=== PATIENT | male | born 1960 | race Caucasian/White ===

== ENCOUNTER 2017-03-27 10:36 | Inpatient (IN) | payer OTHER ==
[2017-03-27 11:42] VITALS: BMI 23.1
[2017-03-27] MEDS ORDERED: ACETAMINOPHEN 325 MG TABLET (FP) PO PRN (13:20)
[2017-03-27] MEDS ORDERED: LOPERAMIDE HCL 2 MG CAPSULE PO PRN (13:20)
[2017-03-27] MEDS ORDERED: guaiFENesin/D-METHORPHAN HB 10 ML UNIT-DOSE CUPS PO PRN (13:20)
[2017-03-27] MEDS ORDERED: MENTHOL/PHENOL 1 EACH UD MM PRN (13:20)
[2017-03-27] MEDS ORDERED: NICOTINE POLACRILEX 4 MG GUM BUC PRN (13:20)
[2017-03-27] MEDS ORDERED: hydrOXYzine PAMOATE 50 MG CAPSULE (FP) PO PRN (13:20)
[2017-03-27] MEDS ORDERED: IBUPROFEN 400 MG TABLET (FP) PO PRN (13:20)
[2017-03-27] MEDS ORDERED: MAG HYDROX/AL HYDROX/SIMETH 30 ML UNIT-DOSE CUP PO PRN (13:20)
[2017-03-27] MEDS ORDERED: diphenhydrAMINE HCL 50 MG CAPSULE PO PRN (13:20)
[2017-03-27] MEDS ORDERED: MAGNESIUM HYDROX 2400MG/30ML ORAL SUSPENSION 30 ML CUP PO PRN (13:20)
[2017-03-27] MEDS ORDERED: chlordiazePOXIDE HCL 25 MG CAPSULE PO PRN (13:20)
[2017-03-27] MEDS ORDERED: MAGNESIUM CITRATE 300 ML BOTTLE PO PRN (13:20)
[2017-03-27] MEDS ORDERED: P-EPHED 60MG/TRIPROLIDI 2.5MG TABLET PO PRN (13:20)
--- NOTE | 2017-03-27 13:20 | HP ---
CIWA Score - CIWA Score Nausea/Vomitin-Mild Nausea/No Vomiting Muscle Tremors: 4-Moderate,w/Arms Extend Anxiety: 4-Mod. Anxious/Guarded Agitation: 4-Moderately Restless Paroxysmal Sweats: 3 Orientation: 0-Oriented Tacttile Disturbances: 1-Very Mild Itch/Numbness Auditory Disturbances: 0-None Visual Disturbances: 0-None Headache: 1-Very Mild CIWA-Ar Total Score: 18 Admission ROS BHS - HPI Chief Complaint: alcohol withdrawal sx Allergies/Adverse Reactions: Allergies Allergy/AdvReac Type Severity Reaction Status Date / Time No Known Allergies Allergy Verified 03/27/17 12:14 History of Present Illness: 56 yo m with h/o chronic alcoholism and first admission to [facility] for inpatient detoxification PMHX insulin dependence DM, gallbladder stones, no pain at present, HTN on meds, depression with multiple suicide attempts in past , no suicidal ideation at this time, insomnia. smokes 1PPD, no illicit drug use , no h/o seizures, no h/o DTS. last drink today. Exam Limitations: No Limitations - Ebola screening Have you traveled outside of the country in the last 21 days: No Have you had contact with anyone from an Ebola affected area: No Have you been sick,other than usual withdrawal symptoms: No Do you have a fever: No - Review of Systems Constitutional: Chills, Diaphoresis, Loss of Appetite, Malaise, Changes in sleep , Weakness, Unintentional Wgt. Loss EENT: reports: No Symptoms Reported Respiratory: reports: No Symptoms reported Cardiac: reports: No Symptoms Reported GI: reports: Diarrhea, Nausea, Poor Appetite, Poor Fluid Intake, Indigestion, Abdominal cramping : reports: No Symptoms Reported Musculoskeletal: reports: No Symptoms Reported Integumentary: reports: Flushing, Sweating Neuro: reports: Headache, Numbness, Paresthesia, Tremors, Weakness Endocrine: reports: No Symptoms Reported Hematology: reports: No Symptoms Reported Psychiatric: reports: Judgement Intact, Mood/Affect Appropiate, Orientated x3, Anxious, Depressed Other Systems: Reviewed and Negative Patient History - Patient Medical History Hx Anemia: No Hx Asthma: No Hx Chronic Obstructive Pulmonary Disease (COPD): No Hx Cancer: No Hx Cardiac Disorders: No Hx Congestive Heart Failure: No Hx Hypertension: Yes (on meds he did not take today) Hx Hypercholesterolemia: No Hx Pacemaker: No HX Cerebrovascular Accident: No Hx Seizures: No Hx Dementia: No Hx Diabetes: Yes (BGM-340) Hx Gastrointestinal Disorders: Yes (gallstones, no painful or active at present) Hx Liver Disease: No Hx Genitourinary Disorders: No Hx Sexually Transmitted Disorders: No Hx Renal Disease (ESRD): No Hx Thyroid Disease: No Hx Human Immunodeficiency Virus (HIV): No Hx Hepatitis C: Yes Hx Depression: Yes Hx Suicide Attempt: Yes (several times a few years ago (5)) Hx Bipolar Disorder: No Hx Schizophrenia: No - Patient Surgical History Past Surgical History: No Anesthesia Reaction: No - PPD History Previous Implant?: Yes Documented Results: Negative w/o proof Implanted On Prior [facility] Admission?: No PPD to be Administered?: Yes - Reproductive History Patient is a Female of Child Bearing Age (11 -55 yrs old): No Patient : No - Smoking Cessation Smoking history: Current every day smoker Have you smoked in the past 12 months: Yes Aproximately how many cigarettes per day: 20 Hx Chewing Tobacco Use: No Initiated information on smoking cessation: Yes 'Breaking Loose' booklet given: 03/27/17 - Substance & Tx. History Hx Alcohol Use: Yes Hx Substance Use: No Substance Use Type: Alcohol - Substances Abused Alcohol Route: Oral Frequency: Daily Amount used: RUM(1-2 PINTS)/BEER-20 CANS(12 OZ CANS) Age of first use: 16 Date of Last Use: 03/27/17 Admission Physical Exam BHS - Vital Signs Vital Signs: Vital Signs - 24 hr 03/27/17 11:40 Temperature 97.5 F L Pulse Rate 123 H Respiratory 18 Rate Blood Pressure 168/113 - Physical General Appearance: Yes: Nourished, Appropriately Dressed, Disheveled, Mild Distress, Alcohol on Breath, Thin, Tremorous, Irritable, Sweating, Anxious HEENTM: Yes: EOMI, Hearing grossly Normal, Normocephalic, Normal Voice, Pharynx Normal, Nasal Congestion, Rhinorrhea Respiratory: Yes: Within Normal Limits, Chest Non-Tender, Lungs Clear, Normal Breath Sounds, No Respiratory Distress, No Accessory Muscle Use Neck: Yes: Within Normal Limits, No masses,lesions,Nodules, Supple, Trachea in good position Breast: Yes: Breast Exam Deferred Cardiology: Yes: Within Normal Limits, Regular Rhythm, Regular Rate, S1, S2 Abdominal: Yes: Normal Bowel Sounds, Non Tender, Flat, Soft, Increased Bowel Sounds Genitourinary: Yes: Within Normal Limits Back: Yes: Within Normal Limits, Normal Inspection Musculoskeletal: Yes: Within Normal Limits, full range of Motion Extremities: Yes: Normal Capillary Refill, Normal Range of Motion, Non-Tender, Tremors Neurological: Yes: fish seiner II-XII NML intact, Fully Oriented, Alert, Motor Strength 5/5, Normal Response, Depressed Affect Integumentary: Yes: Clammy, Diaphoresis, Moist Lymphatic: Yes: Within Normal Limits - Addiitonal Findings: alcohol withdrawal sx - Diagnostic (1) Alcohol dependence with uncomplicated withdrawal Current Visit: Yes Status: Acute (2) Depression Current Visit: Yes Status: Acute (3) Diabetes mellitus Current Visit: Yes Status: Acute (4) Essential (primary) hypertension Current Visit: Yes Status: Acute (5) Insomnia Current Visit: Yes Status: Acute (6) Nicotine dependence Current Visit: Yes Status: Acute (7) Suicide attempt Current Visit: No Status: Inactive Cleared for Admission [facility] - Detox or Rehab [facility] Level of Care: Medically Managed Detox Regimen/Protocol: Librium [facility] Breath Alcohol Content Breath Alcohol Content: 0.038 Urine Drug Screen - Results Drug Screen Negative: No Urine Drug Screen Results: BZO-Benzodiazepines
[2017-03-27] MEDS: NICOTINE 21 MG/24 HOURS TOPICAL PATCH TD SCH (15:21)
[2017-03-27] MEDS: LISINOPRIL 20 MG TABLET (FP) PO SCH (15:21)
[2017-03-27] MEDS: INSULIN (NOVOLOG) ASPART 100 UNITS/ML 10ML VIAL SQ SCH (16:48)
[2017-03-27] MEDS: chlordiazePOXIDE HCL 25 MG CAPSULE PO SCH ×2 (16:49→22:39)
[2017-03-27 18:42] LABS: URINE APPEARANCE SLCLOUDY; URINE BILIRUBIN NEGATIVE (NEGATIVE); URINE BLOOD NEGATIVE (NEGATIVE); URINE COLOR AMBER; URINE GLUCOSE (UA) 3+ (NEGATIVE); URINE KETONE 1+ (NEGATIVE); URINE NITRITE NEGATIVE (NEGATIVE); URINE UROBILINOGEN 4.0 E.U/dl mg/dL (0.2-1.0)
[2017-03-27 18:53] LABS: URINE PROTEIN 3+ (NEGATIVE)
[2017-03-27 19:01] LABS: URINE BACTERIA MANY /hpf (NONE SEEN); URINE MUCUS FEW; URINE RBC 9 /hpf (0-3); URINE WBC 11 /hpf (3-5)
[2017-03-27 21:10] LABS: URINE LEUK ESTERASE Negative (NEGATIVE)
[2017-03-27] MEDS: THIAMINE HCL 100 MG TABLET (FP) PO SCH (22:39)
[2017-03-27] MEDS: ZOLPIDEM TARTRATE 5 MG TABLET PO PRN (22:41)
[2017-03-28] MEDS: chlordiazePOXIDE HCL 25 MG CAPSULE PO SCH ×4 (05:59→22:44)
[2017-03-28] MEDS: INSULIN (NOVOLOG) ASPART 100 UNITS/ML 10ML VIAL SQ SCH ×2 (07:59→17:02)
--- NOTE | 2017-03-28 08:09 | CONSULT ---
[facility] Psychiatric Consult - Data Date of interview: 03/28/17 Admission source: [facility] Identifying data: Mr Jan Fierro is a 56 years old male, father of a 28 years old daughter, unemployed on SSD, homeless Substance Abuse History: Reports history of alcohol use. He started drinking alcohol at age 16, consumes 1-2 pints of rum & 20x 12oz of beer daily Medical History: Significant for IDDM, HTN, Gallbladder stones and hep C. Smokes cigarettes 1ppd Psychiatric History: Patient does not have great command of the [place] language. However, reports history of treatment for depression for more than 10 years. Reports a few psychiatric hospitalizations and suicidal attempts by taking pills. Reports he came to [facility] a week ago and has been seeing a psychiatrist in [place] prior to coming to the [facility]. Claims that he was prescribed Klonopin 2 mg po BID and Trazadone 50 mg po HS. Reports feeling well at present but sleeping poorly Physical/Sexual Abuse/Trauma History: No reported history of abuse Mental Status Exam - Mental Status Exam Alert and Oriented to: Time, Place, Person Cognitive Function: Fair Patient Appearance: Well Groomed Mood: Hopeful, Euthymic Patient Behavior: Cooperative Speech Pattern: Clear Voice Loudness: Normal Thought Process: Intact, Goal Oriented Thought Disorder: Not Present Hallucinations: Denies Suicidal Ideation: Denies Homicidal Ideation: Denies Insight/Judgement: Poor Sleep: Poorly Appetite: Fair Muscle strength/Tone: Normal Gait/Station: Normal Psychiatric Findings - Problem List ([place] 1, 2,3) (1) Depressive disorder Current Visit: Yes Status: Acute (2) MDD (major depressive disorder), recurrent episode, moderate Current Visit: Yes Status: Acute (3) Alcohol-induced mood disorder Current Visit: Yes Status: Acute (4) Alcohol dependence with uncomplicated withdrawal Current Visit: Yes Status: Acute (5) Nicotine dependence Current Visit: Yes Status: Acute (6) Diabetes mellitus Current Visit: Yes Status: Acute (7) Essential (primary) hypertension Current Visit: Yes Status: Acute - Initial Treatment Plan Initial Treatment Plan: 1) Continue Trazadone 50 mg po HS. 2) Continue Inpatient detoxification
[2017-03-28] MEDS: NICOTINE 21 MG/24 HOURS TOPICAL PATCH TD SCH (10:53)
[2017-03-28] MEDS: PRENATAL VITAMINS W/ FOLIC ACID TABLET (FP) PO SCH (10:53)
[2017-03-28] MEDS: LISINOPRIL 20 MG TABLET (FP) PO SCH (10:53)
[2017-03-28 11:29] LABS: MCH 30.1 pg (25.7-33.7); MCHC 32.9 g/dl (32.0-35.9); MEAN CELL VOLUME 91.6 fl (80-96); MEAN PLT VOLUME 9.3 fl (7.5-11.1); PLATELET COUNT 219 K/MM3 (134-434); RDW 14.4 % (11.9-15.9); WHITE BLOOD COUNT 6.4 K/mm3 (4.0-10.0)
--- NOTE | 2017-03-28 11:41 | EKG ---
Test Reason : Blood Pressure : / mmHG Vent. Rate : 087 BPM Atrial Rate : 087 BPM P-R Int : 146 ms QRS Dur : 094 ms QT Int : 378 ms P-R-T Axes : 053 051 055 degrees QTc Int : 454 ms NORMAL SINUS RHYTHM NORMAL ECG NO PREVIOUS ECGS AVAILABLE Confirmed by TEJ NICOLE MD ([id number]) on 03/28/2017 11:40:49 AM Referred By: Confirmed By:TEJ NICOLE MD
[2017-03-28 11:49] LABS: ANION GAP 7 (8-16); CALCIUM 8.7 mg/dL (8.5-10.1); CO2 30 mmol/L (21-32); CREATININE 0.9 mg/dL (0.7-1.3); GLUCOSE,RANDOM 254 mg/dL (74-106); SGOT/AST 59 U/L (15-37); SGPT/ALT 56 U/L (12-78)
[2017-03-28 11:51] LABS: ALK PHOS 105 U/L (45-117); BILIRUBIN,TOTAL 0.9 mg/dL (0.2-1.0); TOT PROT 6.7 g/dl (6.4-8.2)
[2017-03-28 12:17] LABS: HIV 1 & 2 AB NEGATIVE; HIV 1 AGp24 NEGATIVE
--- NOTE | 2017-03-28 13:33 | PN ---
S CIWA - CIWA Score Nausea/Vomitin Muscle Tremors: 3 Anxiety: 3 Agitation: 2 Paroxysmal Sweats: 1-Minimal Palms Moist Orientation: 0-Oriented Tacttile Disturbances: 1-Very Mild Itch/Numbness Auditory Disturbances: 1-Very Mild Visual Disturbances: 0-None Headache: 2-Mild CIWA-Ar Total Score: 16 BHS Progress Note (SOAP) Subjective: ALERT,IRRITABLE,ANXIOUS,INTERRUPTED SLEEP,TREMOR Objective: 03/28/17 13:30 Vital Signs Temperature 98.1 F 03/28/17 08:01 Pulse Rate 53 L 03/28/17 08:01 Respiratory Rate 16 03/28/17 08:01 Blood Pressure 123/75 03/28/17 08:01 O2 Sat by Pulse Oximetry (%) EKG NSR,NORMAL ECG Laboratory Last Values WBC 6.4 K/mm3 (4.0-10.0) 03/28/17 07:45 RBC 4.49 M/mm3 (4.00-5.60) 03/28/17 07:45 Hgb 13.5 GM/dL (11.7-16.9) 03/28/17 07:45 Hct 41.2 % (35.4-49) 03/28/17 07:45 MCV 91.6 fl (80-96) 03/28/17 07:45 MCH 30.1 pg (25.7-33.7) 03/28/17 07:45 MCHC 32.9 g/dl (32.0-35.9) 03/28/17 07:45 RDW 14.4 % (11.9-15.9) 03/28/17 07:45 Plt Count 219 K/MM3 (134-434) 03/28/17 07:45 MPV 9.3 fl (7.5-11.1) 03/28/17 07:45 Sodium 138 mmol/L (136-145) 03/28/17 07:45 Potassium 4.5 mmol/L (3.5-5.1) 03/28/17 07:45 Chloride 101 mmol/L (98-107) 03/28/17 07:45 Carbon Dioxide 30 mmol/L (21-32) 03/28/17 07:45 Anion Gap 7 (8-16) L 03/28/17 07:45 BUN 16 mg/dL (7-18) 03/28/17 07:45 Creatinine 0.9 mg/dL (0.7-1.3) 03/28/17 07:45 Creat Clearance w eGFR > 60 (>60) 03/28/17 07:45 POC Glucometer 355 UNITS (()) 03/27/17 16:40 Random Glucose 254 mg/dL (74-106) H 03/28/17 07:45 Calcium 8.7 mg/dL (8.5-10.1) 03/28/17 07:45 Total Bilirubin 0.9 mg/dL (0.2-1.0) 03/28/17 07:45 AST 59 U/L (15-37) H 03/28/17 07:45 ALT 56 U/L (12-78) 03/28/17 07:45 Alkaline Phosphatase 105 U/L (45-117) 03/28/17 07:45 Total Protein 6.7 g/dl (6.4-8.2) 03/28/17 07:45 Albumin 3.0 g/dl (3.4-5.0) L 03/28/17 07:45 Urine Color [place] 03/27/17 18:00 Urine Appearance Slcloudy 03/27/17 18:00 Urine pH 6.0 (5.0-8.0) 03/27/17 18:00 Ur Specific [place] 1.020 (1.005-1.025) 03/27/17 18:00 Urine Protein 3+ (NEGATIVE) H 03/27/17 18:00 Urine Glucose (UA) 3+ (NEGATIVE) H 03/27/17 18:00 Urine Ketones 1+ (NEGATIVE) H 03/27/17 18:00 Urine Blood Negative (NEGATIVE) 03/27/17 18:00 Urine Nitrite Negative (NEGATIVE) 03/27/17 18:00 Urine Bilirubin Negative (NEGATIVE) 03/27/17 18:00 Urine Urobilinogen 4.0 e.u/dl mg/dL (0.2-1.0) 03/27/17 18:00 Ur Leukocyte Esterase Negative (NEGATIVE) 03/27/17 18:00 Urine RBC 9 /hpf (0-3) 03/27/17 18:00 Urine WBC 11 /hpf (3-5) 03/27/17 18:00 Ur Epithelial Cells Rare /hpf (FEW) 03/27/17 18:00 Urine Bacteria Many /hpf (NONE SEEN) 03/27/17 18:00 Urine Mucus Few 03/27/17 18:00 RPR Titer Nonreactive (NONREACTIVE) 03/28/17 07:45 HIV 1&2 Antibody Screen Negative 03/28/17 07:45 HIV P24 Antigen Negative 03/28/17 07:45 Assessment: 03/28/17 13:32 WITHDRAWAL SYMPTOM Plan: CONTINUE DETOX ,BGM MONITORING,REPEAT UA
[2017-03-28] MEDS: traZODone HCL 50 MG TABLET (FP) PO SCH (22:44)
[2017-03-28] MEDS: THIAMINE HCL 100 MG TABLET (FP) PO SCH (22:45)
[2017-03-28] MEDS: ZOLPIDEM TARTRATE 5 MG TABLET PO PRN (22:45)
[2017-03-29] MEDS: chlordiazePOXIDE HCL 25 MG CAPSULE PO SCH ×2 (05:47→10:43)
[2017-03-29] MEDS ORDERED: INSULIN (NOVOLOG) ASPART 100 UNITS/ML 10ML VIAL ONE ×2 (08:26→17:05)
[2017-03-29] MEDS: INSULIN (NOVOLOG) ASPART 100 UNITS/ML 10ML VIAL SQ SCH (08:44)
[2017-03-29 09:42] LABS: URINE APPEARANCE CLEAR; URINE BILIRUBIN NEGATIVE (NEGATIVE); URINE BLOOD NEGATIVE (NEGATIVE); URINE GLUCOSE (UA) NEGATIVE (NEGATIVE); URINE KETONE NEGATIVE (NEGATIVE); URINE NITRITE NEGATIVE (NEGATIVE); URINE UROBILINOGEN 4.0 E.U/dl mg/dL (0.2-1.0)
[2017-03-29 09:45] LABS: URINE COLOR YELLOW; URINE PROTEIN 1+ (NEGATIVE)
[2017-03-29 09:51] LABS: URINE BACTERIA RARE /hpf (NONE SEEN); URINE MUCUS RARE; URINE RBC <1 /hpf (0-3); URINE WBC <1 /hpf (3-5)
[2017-03-29] MEDS: LISINOPRIL 20 MG TABLET (FP) PO SCH (10:42)
[2017-03-29] MEDS: NICOTINE 21 MG/24 HOURS TOPICAL PATCH TD SCH (10:42)
[2017-03-29] MEDS: PRENATAL VITAMINS W/ FOLIC ACID TABLET (FP) PO SCH (10:43)
[2017-03-29] MEDS ORDERED: INSULIN SLIDING SCALE (NOVOLOG) 1 VIAL SQ SCH (11:30)
[2017-03-29] MEDS: INSULIN SLIDING SCALE (NOVOLOG) 1 VIAL SQ SCH ×2 (11:32→17:16)
--- NOTE | 2017-03-29 12:24 | PN ---
S CIWA - CIWA Score Nausea/Vomitin Muscle Tremors: 3 Anxiety: 3 Agitation: 2 Paroxysmal Sweats: 2 Orientation: 0-Oriented Tacttile Disturbances: 1-Very Mild Itch/Numbness Auditory Disturbances: 1-Very Mild Visual Disturbances: 0-None Headache: 2-Mild CIWA-Ar Total Score: 17 S Progress Note (SOAP) Subjective: alert,irritable,anxious,interrupted sleep,aching pain Objective: 03/29/17 12:22 Vital Signs Temperature 97.9 F 03/29/17 11:09 Pulse Rate 116 H 03/29/17 11:09 Respiratory Rate 20 03/29/17 11:09 Blood Pressure 141/105 03/29/17 11:09 O2 Sat by Pulse Oximetry (%) Laboratory Last Values WBC 6.4 K/mm3 (4.0-10.0) 03/28/17 07:45 RBC 4.49 M/mm3 (4.00-5.60) 03/28/17 07:45 Hgb 13.5 GM/dL (11.7-16.9) 03/28/17 07:45 Hct 41.2 % (35.4-49) 03/28/17 07:45 MCV 91.6 fl (80-96) 03/28/17 07:45 MCH 30.1 pg (25.7-33.7) 03/28/17 07:45 MCHC 32.9 g/dl (32.0-35.9) 03/28/17 07:45 RDW 14.4 % (11.9-15.9) 03/28/17 07:45 Plt Count 219 K/MM3 (134-434) 03/28/17 07:45 MPV 9.3 fl (7.5-11.1) 03/28/17 07:45 Sodium 138 mmol/L (136-145) 03/28/17 07:45 Potassium 4.5 mmol/L (3.5-5.1) 03/28/17 07:45 Chloride 101 mmol/L (98-107) 03/28/17 07:45 Carbon Dioxide 30 mmol/L (21-32) 03/28/17 07:45 Anion Gap 7 (8-16) L 03/28/17 07:45 BUN 16 mg/dL (7-18) 03/28/17 07:45 Creatinine 0.9 mg/dL (0.7-1.3) 03/28/17 07:45 Creat Clearance w eGFR > 60 (>60) 03/28/17 07:45 POC Glucometer 144 UNITS (()) 03/29/17 11:30 Random Glucose 254 mg/dL (74-106) H 03/28/17 07:45 Calcium 8.7 mg/dL (8.5-10.1) 03/28/17 07:45 Total Bilirubin 0.9 mg/dL (0.2-1.0) 03/28/17 07:45 AST 59 U/L (15-37) H 03/28/17 07:45 ALT 56 U/L (12-78) 03/28/17 07:45 Alkaline Phosphatase 105 U/L (45-117) 03/28/17 07:45 Total Protein 6.7 g/dl (6.4-8.2) 03/28/17 07:45 Albumin 3.0 g/dl (3.4-5.0) L 03/28/17 07:45 Urine Color Yellow 03/29/17 07:00 Urine Appearance Clear 03/29/17 07:00 Urine pH 7.0 (5.0-8.0) 03/29/17 07:00 Ur Specific [place] 1.020 (1.005-1.025) 03/27/17 18:00 Urine Protein 1+ (NEGATIVE) H D 03/29/17 07:00 Urine Glucose (UA) Negative (NEGATIVE) 03/29/17 07:00 Urine Ketones Negative (NEGATIVE) 03/29/17 07:00 Urine Blood Negative (NEGATIVE) 03/29/17 07:00 Urine Nitrite Negative (NEGATIVE) 03/29/17 07:00 Urine Bilirubin Negative (NEGATIVE) 03/29/17 07:00 Urine Urobilinogen 4.0 e.u/dl mg/dL (0.2-1.0) 03/29/17 07:00 Ur Leukocyte Esterase Negative (NEGATIVE) 03/27/17 18:00 Urine RBC <1 /hpf (0-3) 03/29/17 07:00 Urine WBC <1 /hpf (3-5) 03/29/17 07:00 Ur Epithelial Cells Rare /hpf (FEW) 03/29/17 07:00 Urine Bacteria Rare /hpf (NONE SEEN) 03/29/17 07:00 Urine Mucus Rare 03/29/17 07:00 RPR Titer Nonreactive (NONREACTIVE) 03/28/17 07:45 HIV 1&2 Antibody Screen Negative 03/28/17 07:45 HIV P24 Antigen Negative 03/28/17 07:45 03/29/17 12:23 bgm 144 Assessment: 03/29/17 12:23 withdrawal symptom Plan: continue detox with bgm monitoring with insulin coverage
[2017-03-29 17:11] LABS: URINE LEUK ESTERASE Negative (NEGATIVE)
[2017-03-29] MEDS: chlordiazePOXIDE 5 MG CAPSULE PO SCH ×2 (17:16→22:19)
[2017-03-29] MEDS ORDERED: cloNIDine HCL 0.1 MG TABLET PO PRN (19:19)
[2017-03-29] MEDS: traZODone HCL 50 MG TABLET (FP) PO SCH (22:19)
[2017-03-29] MEDS: THIAMINE HCL 100 MG TABLET (FP) PO SCH (22:19)
[2017-03-29] MEDS: ZOLPIDEM TARTRATE 5 MG TABLET PO PRN (22:19)
[2017-03-30] MEDS: chlordiazePOXIDE 5 MG CAPSULE PO SCH ×2 (05:44→10:20)
[2017-03-30] MEDS: INSULIN (NOVOLOG) ASPART 100 UNITS/ML 10ML VIAL SQ SCH (08:33)
[2017-03-30] MEDS: LISINOPRIL 20 MG TABLET (FP) PO SCH (10:20)
[2017-03-30] MEDS: PRENATAL VITAMINS W/ FOLIC ACID TABLET (FP) PO SCH (10:20)
[2017-03-30] MEDS: NICOTINE 21 MG/24 HOURS TOPICAL PATCH TD SCH (10:22)
[2017-03-30] MEDS: INSULIN SLIDING SCALE (NOVOLOG) 1 VIAL SQ SCH ×2 (11:08→16:50)
--- NOTE | 2017-03-30 11:20 | PN ---
S Progress Note (SOAP) Subjective: alert,irritable,anxious,interrupted sleep, Objective: 03/30/17 11:18 Vital Signs Temperature 97.9 F 03/30/17 10:00 Pulse Rate 97 H 03/30/17 10:00 Respiratory Rate 20 03/30/17 10:00 Blood Pressure 139/95 03/30/17 10:00 O2 Sat by Pulse Oximetry (%) Assessment: 03/30/17 11:18 withdrawal symptom Plan: continue detox,bgm monitoring,bgm monitoring continue detox,discharge in am
[2017-03-30] MEDS ORDERED: INSULIN (NOVOLOG) ASPART 100 UNITS/ML 10ML VIAL ONE (16:45)
[2017-03-30] MEDS: chlordiazePOXIDE HCL 10 MG CAPSULE PO SCH ×2 (17:37→22:20)
[2017-03-30] MEDS ORDERED: INSULIN (NOVOLOG) ASPART 100 UNITS/ML 10ML VIAL SQ ONE (22:15)
[2017-03-30] MEDS: traZODone HCL 50 MG TABLET (FP) PO SCH (22:20)
[2017-03-30] MEDS: THIAMINE HCL 100 MG TABLET (FP) PO SCH (22:22)
[2017-03-31] MEDS: chlordiazePOXIDE HCL 10 MG CAPSULE PO SCH (05:33)
[2017-03-31 06:42] VITALS: BP 134/78; PULSE 72; TEMP 96.4
[2017-03-31] MEDS: INSULIN (NOVOLOG) ASPART 100 UNITS/ML 10ML VIAL SQ SCH (08:29)
--- NOTE | 2017-03-31 08:43 | DS ---
[facility] Detox Discharge Summary Admission Date: 03/27/17 - History Present History: Alcohol Dependence Additional Comments: follow up with after care program as arrangement Pertinent Past History: essential hypertension iddm nicotine dependence insomnia - Physical Exam Results Vital Signs: Vital Signs Temperature 96.4 F L 03/31/17 06:41 Pulse Rate 72 03/31/17 06:41 Respiratory Rate 18 03/31/17 06:41 Blood Pressure 134/78 03/31/17 06:41 O2 Sat by Pulse Oximetry (%) Pertinent Admission Physical Exam Findings: withdrawal symptom - Treatment Hospital Course: Detox Protocol Followed, Detoxed Safely, Responded well, Discharged Condition Good Patient has Accepted a Rehab Referral to: declined - Medication Discharge Medications: Ambulatory Orders Insulin (Novolog) [Novolog Vial] 15 units SQ ACDIN 03/27/17 Insulin (Novolog) [Novolog] 45 units SQ AM 03/27/17 Lisinopril [Prinivil -] 40 mg PO DAILY 03/27/17 Trazodone HCl [Desyrel -] 50 mg PO HS #30 tablet 03/29/17 - Diagnosis (1) Alcohol dependence with uncomplicated withdrawal Current Visit: Yes Status: Acute (2) Depressive disorder Current Visit: Yes Status: Acute (3) Nicotine dependence Current Visit: Yes Status: Acute (4) IDDM (insulin dependent diabetes mellitus) Current Visit: Yes Status: Acute - AMA Did Patient Leave Against Medical Advice: No
== END 2017-03-31 09:05 | disposition home or self-care (01) | DRG 897 ==
LOC: YASAS 10:36 → Y6N 13:52
PROVIDERS: ADMIT Internal Medicine; ATTEND Internal Medicine
PROC: HZ2ZZZZ Detoxification Services for Substance Abuse Treatment (ICD-10-PCS; principal; 2017-03-27)
DX: F10.230 Alcohol dependence with withdrawal, uncomplicated (principal); F33.1 Major depressive disorder, recurrent, moderate; F17.210 Nicotine dependence, cigarettes, uncomplicated; F10.24 Alcohol dependence with alcohol-induced mood disorder; I10 Essential (primary) hypertension; E11.9 Type 2 diabetes mellitus without complications; Z79.4 Long term (current) use of insulin; Z91.5 Personal history of self-harm; Z59.0 Homelessness
CPT/HCPCS: 36415; 80053; 81003; 81015; 85027; 86593; 87389; 93005; 93010

== ENCOUNTER 2018-12-16 16:14 | Inpatient (IN) | payer OTHER ==
[2018-12-16 17:42] VITALS: BMI 22.1
--- NOTE | 2018-12-16 19:22 | HP ---
CIWA Score Nausea/Vomitin-No Nausea/No Vomiting Muscle Tremors: None Anxiety: 4-Mod. Anxious/Guarded Agitation: 4-Moderately Restless Paroxysmal Sweats: No Perspiration Orientation: 0-Oriented Tacttile Disturbances: 0-None Auditory Disturbances: 0-None Visual Disturbances: 0-None Headache: 0-None Present CIWA-Ar Total Score: 8 - Admission Criteria OASAS Guidelines: Admission for Medically Managed Detox: Requires at least one of the followin. CIWA greater than 12 2. Seizures within the past 24 hours 3. Delirium tremens within the past 24 hours 4. Hallucinations within the past 24 hours 5. Acute intervention needed for co occurring medical disorder 6. Acute intervention needed for co occurring psychiatric disorder 7. Severe withdrawal that cannot be handled at a lower level of care (continued vomiting, continued diarrhea, abnormal vital signs) requiring intravenous medication and/or fluids 8. Admission ROS S - HPI Allergies/Adverse Reactions: Allergies Allergy/AdvReac Type Severity Reaction Status Date / Time No Known Allergies Allergy Verified 12/16/18 17:29 History of Present Illness: pt here requesting detox from etoh use , reports 20 beers/day x 40 years, latest use yesterday , current symptoms as above , reports " I need drink " denies seizures, tremors or blackouts . Denies tx episodes since previous detox at this facility in 2017 . PMHX insulin dependence DM, cholelithiasis , HTN , depression , insomnia. PSHx : denies meds - see list tobacco : 1 ppd , not interested in smoking cessation . Exam Limitations: Clinical Condition - Ebola screening Have you traveled outside of the country in the last 21 days: No Have you had contact with anyone from an Ebola affected area: No - Review of Systems Constitutional: No Symptoms Reported EENT: reports: No Symptoms Reported Respiratory: reports: No Symptoms reported Cardiac: reports: No Symptoms Reported GI: reports: No Symptoms Reported : reports: No Symptoms Reported Musculoskeletal: reports: No Symptoms Reported Integumentary: reports: No Symptoms Reported Neuro: reports: No Symptoms reported Endocrine: reports: See HPI Psychiatric: reports: Orientated x3, Agitated, Anxious Patient History - Patient Medical History Hx Anemia: No Hx Asthma: No Hx Chronic Obstructive Pulmonary Disease (COPD): No Hx Cancer: No Hx Cardiac Disorders: No Hx Congestive Heart Failure: No Hx Hypertension: Yes (on meds he did not take today) Hx Hypercholesterolemia: No Hx Pacemaker: No HX Cerebrovascular Accident: No Hx Seizures: No Hx Dementia: No Hx Diabetes: Yes (BGM-340) Hx Gastrointestinal Disorders: Yes (gallstones, no painful or active at present) Hx Liver Disease: No Hx Genitourinary Disorders: No Hx Sexually Transmitted Disorders: No Hx Renal Disease (ESRD): No Hx Thyroid Disease: No Hx Human Immunodeficiency Virus (HIV): No Hx Hepatitis C: Yes Hx Depression: Yes Hx Suicide Attempt: Yes (several times a few years ago (5)) Hx Bipolar Disorder: No Hx Schizophrenia: No - Patient Surgical History Past Surgical History: No Anesthesia Reaction: No - PPD History Date: 03/29/17 - Smoking Cessation Smoking history: Current every day smoker Have you smoked in the past 12 months: Yes Aproximately how many cigarettes per day: 20 Hx Chewing Tobacco Use: No Initiated information on smoking cessation: No - Substances abused Alcohol Substance route: Oral Frequency: Daily Amount used: 'mucho' drinking., can't specify amount. Age of first use: 16 Date of last use: 12/15/18 Family Disease History - Family Disease History Family History: Denies Admission Physical Exam [facility] - Vital Signs Vital Signs: Vital Signs - 24 hr 12/16/18 17:36 Temperature 98.4 F Pulse Rate 78 Respiratory 20 Rate Blood Pressure 161/94 - Physical General Appearance: Yes: Mild Distress, Irritable, Anxious HEENTM: Yes: Normocephalic, Normal Voice Respiratory: Yes: Lungs Clear, Normal Breath Sounds, No Respiratory Distress, No Accessory Muscle Use Neck: Yes: No masses,lesions,Nodules, Trachea in good position Cardiology: Yes: Regular Rhythm, Regular Rate, S1, S2 Abdominal: Yes: Non Tender, Soft Back: Yes: Normal Inspection Musculoskeletal: Yes: Gait Steady Neurological: Yes: Fully Oriented, Alert, Motor Strength 5/5 Integumentary: Yes: Warm - Diagnostic (1) Alcohol dependence with uncomplicated withdrawal Current Visit: Yes Status: Acute (2) Nicotine dependence Current Visit: Yes Status: Chronic Qualifiers: Nicotine product type: cigarettes Breathalyzer - Breathalyzer Breathalyzer: 0 Urine Drug Screen - Test Device Lot number: [id number] Expiration date: 08/11/20 - Control Is test valid?: Yes - Results Drug screen NEGATIVE: Yes Inpatient Rehab Admission - Rehab Decision to Admit Inpatient rehab admission?: No
[2018-12-16] MEDS ORDERED: hydrOXYzine PAMOATE 25 MG CAPSULE (FP) PO PRN (19:35)
[2018-12-16] MEDS ORDERED: BISMUTH SUBSALICYLATE 524 MG/30 ML UD PO PRN (19:35)
[2018-12-16] MEDS ORDERED: NICOTINE POLACRILEX 2 MG GUM BUC PRN (19:35)
[2018-12-16] MEDS ORDERED: IBUPROFEN 400 MG TABLET (FP) PO PRN (19:35)
[2018-12-16] MEDS ORDERED: MAG HYDROX/AL HYDROX/SIMETH 30 ML UNIT-DOSE CUP PO PRN (19:35)
[2018-12-16] MEDS ORDERED: MAGNESIUM CITRATE 300 ML BOTTLE PO PRN (19:35)
[2018-12-16] MEDS ORDERED: MAGNESIUM HYDROX 2400MG/30ML ORAL SUSPENSION 30 ML CUP PO PRN (19:35)
[2018-12-16] MEDS ORDERED: ACETAMINOPHEN 325 MG TABLET (FP) PO PRN ×2 (19:35)
[2018-12-16] MEDS ORDERED: MENTHOL/PHENOL 1 EACH UD MM PRN (19:35)
[2018-12-16] MEDS: MELATONIN 5 MG TABLETS PO PRN (22:28)
[2018-12-16] MEDS: diazePAM 5 MG TABLET PO SCH (22:28)
[2018-12-16] MEDS: THIAMINE HCL 100 MG TABLET (FP) PO SCH (22:28)
--- NOTE | 2018-12-16 23:04 | PN ---
[facility] Progress Note Note: called for xby=[id number] no coverage today admin 5u levimir hs then cont fsg adding coverage as needed
[2018-12-16] MEDS ORDERED: INSULIN (LEVEMIR) 100 UNITS/ML UNITS SQ SCH (23:06)
[2018-12-16] MEDS: INSULIN (LEVEMIR) 100 UNITS/ML UNITS SQ SCH (23:20)
[2018-12-17] MEDS: diazePAM 5 MG TABLET PO SCH ×3 (05:31→22:48)
[2018-12-17] MEDS ORDERED: INSULIN (NOVOLOG) ASPART 100 UNITS/ML 10ML VIAL SQ ONE (08:27)
--- NOTE | 2018-12-17 08:31 | PN ---
[facility] Progress Note Note: I was called for cbg of 354mg/dl. pt is started on novolog insulin sliding scale today.
[2018-12-17] MEDS: ATENOLOL 50 MG TABLET (FP) PO SCH (09:21)
[2018-12-17] MEDS: PRENATAL VITAMINS W/ FOLIC ACID TABLET (FP) PO SCH (09:21)
[2018-12-17 11:11] LABS: HEMATOCRIT 41.4 % (35.4-49); MCH 31.6 pg (25.7-33.7); MCHC 33.7 g/dl (32.0-35.9); MEAN CELL VOLUME 93.6 fl (80-96); MEAN PLT VOLUME 9.1 fl (7.5-11.1); RBC 4.43 M/mm3 (4.00-5.60); RDW 13.1 % (11.9-15.9); WHITE BLOOD COUNT 7.7 K/mm3 (4.0-10.0)
[2018-12-17 11:32] LABS: ALBUMIN 3.3 g/dl (3.4-5.0); BILIRUBIN,TOTAL 0.4 mg/dL (0.2-1); BLOOD UREA NITROGEN 16.1 mg/dL (7-18); CALCIUM 8.9 mg/dL (8.5-10.1); POTASSIUM 4.3 mmol/L (3.5-5.1); TOT PROT 6.6 g/dl (6.4-8.2)
--- NOTE | 2018-12-17 11:32 | PN ---
[facility] CIWA - CIWA Score Nausea/Vomitin-No Nausea/No Vomiting Muscle Tremors: None Anxiety: 2 Agitation: 2 Paroxysmal Sweats: 3 Orientation: 0-Oriented Tacttile Disturbances: 2-Mild Itch/Numbness/Burn Auditory Disturbances: 0-None Visual Disturbances: 0-None Headache: 0-None Present CIWA-Ar Total Score: 9 BHS Progress Note (SOAP) Subjective: c/o sweats and anxiety. Pt denies any chest pain, headache, sob, N/V. Objective: 12/17/18 11:33 Vital Signs 12/17/18 12/17/18 07:53 09:33 Temperature 97.7 F 97.9 F Pulse Rate 62 79 Respiratory 18 18 Rate Blood Pressure 131/90 187/109 H Lab Results Sodium 137 mmol/L (136-145) 12/17/18 08:00 Potassium 4.3 mmol/L (3.5-5.1) 12/17/18 08:00 Chloride 102 mmol/L (98-107) 12/17/18 08:00 Carbon Dioxide 30 mmol/L (21-32) 12/17/18 08:00 Anion Gap 4 MMOL/L (8-16) L 12/17/18 08:00 BUN 16.1 mg/dL (7-18) 12/17/18 08:00 Creatinine 1.0 mg/dL (0.55-1.3) 12/17/18 08:00 Calcium 8.9 mg/dL (8.5-10.1) 12/17/18 08:00 Labs noted. Elevated BP 12/17/18 11:36 Assessment: 12/17/18 11:34 AOX3, in no acute respiratory distress. Full ROM, ambulating in the unit. withdrawal symptoms Elevated BP Plan: continue detox Give scheduled atenolol 50mg po and recheck BP in an hour. Monitor vital signs
[2018-12-17 12:16] LABS: PLATELET COUNT 236 K/MM3 (134-434)
[2018-12-17] MEDS: INSULIN SLIDING SCALE (NOVOLOG) 1 VIAL SQ SCH (16:43)
[2018-12-17] MEDS ORDERED: INSULIN (LEVEMIR) 100 UNITS/ML UNITS SQ SCH (22:00)
[2018-12-17] MEDS: THIAMINE HCL 100 MG TABLET (FP) PO SCH (22:48)
[2018-12-17] MEDS: INSULIN (LEVEMIR) 100 UNITS/ML UNITS SQ SCH (22:55)
[2018-12-18] MEDS: diazePAM 5 MG TABLET PO SCH ×2 (06:21→18:53)
[2018-12-18] MEDS: INSULIN SLIDING SCALE (NOVOLOG) 1 VIAL SQ SCH ×2 (07:50→18:51)
[2018-12-18] MEDS: PRENATAL VITAMINS W/ FOLIC ACID TABLET (FP) PO SCH (09:50)
[2018-12-18] MEDS: ATENOLOL 50 MG TABLET (FP) PO SCH (09:50)
[2018-12-18] MEDS: diazePAM 5 MG TABLET PO PRN ×2 (09:51→23:13)
--- NOTE | 2018-12-18 15:59 | PN ---
S CIWA - CIWA Score Nausea/Vomitin-No Nausea/No Vomiting Muscle Tremors: None Anxiety: 0-No Anxiety, at Ease Agitation: 2 Paroxysmal Sweats: No Perspiration Orientation: 0-Oriented Tacttile Disturbances: 0-None Auditory Disturbances: 0-None Visual Disturbances: 0-None Headache: 0-None Present CIWA-Ar Total Score: 2 BHS Progress Note (SOAP) Subjective: Patient denies current Withdrawal / Detox symptoms and reports that he feels well overall at this time. Objective: PATIENT A & O X 3, OBSERVED AMBULATING ON UNIT UNASSISTED. IN NO ACUTE DISTRESS. 12/18/18 15:56 Vital Signs Temperature 97.5 F L 12/18/18 13:19 Pulse Rate 67 12/18/18 13:19 Respiratory Rate 18 12/18/18 13:19 Blood Pressure 154/83 12/18/18 13:19 O2 Sat by Pulse Oximetry (%) Laboratory Tests 12/16/18 12/17/18 12/17/18 22:30 05:44 08:00 WBC 7.7 RBC 4.43 Hgb 14.0 Hct 41.4 MCV 93.6 MCH 31.6 MCHC 33.7 RDW 13.1 Plt Count 236 MPV 9.1 Sodium Potassium Chloride Carbon Dioxide Anion Gap BUN Creatinine Est GFR (CKD-EPI)AfAm Est GFR (CKD-EPI)NonAf POC Glucometer 383 386 Random Glucose Calcium Total Bilirubin AST ALT Alkaline Phosphatase Total Protein Albumin RPR Titer 12/17/18 12/17/18 12/17/18 08:00 08:00 08:09 WBC RBC Hgb Hct MCV MCH MCHC RDW Plt Count MPV Sodium 137 Potassium 4.3 Chloride 102 Carbon Dioxide 30 Anion Gap 4 L BUN 16.1 Creatinine 1.0 Est GFR (CKD-EPI)AfAm 96.40 Est GFR (CKD-EPI)NonAf 83.18 POC Glucometer 354 Random Glucose 402 H* Calcium 8.9 Total Bilirubin 0.4 AST 56 H ALT 77 H Alkaline Phosphatase 124 H Total Protein 6.6 Albumin 3.3 L RPR Titer Nonreactive 12/17/18 12/17/18 12/18/18 16:41 22:49 00:11 WBC RBC Hgb Hct MCV MCH MCHC RDW Plt Count MPV Sodium Potassium Chloride Carbon Dioxide Anion Gap BUN Creatinine Est GFR (CKD-EPI)AfAm Est GFR (CKD-EPI)NonAf POC Glucometer [phone] Random Glucose Calcium Total Bilirubin AST ALT Alkaline Phosphatase Total Protein Albumin RPR Titer 12/18/18 06:20 WBC RBC Hgb Hct MCV MCH MCHC RDW Plt Count MPV Sodium Potassium Chloride Carbon Dioxide Anion Gap BUN Creatinine Est GFR (CKD-EPI)AfAm Est GFR (CKD-EPI)NonAf POC Glucometer 341 Random Glucose Calcium Total Bilirubin AST ALT Alkaline Phosphatase Total Protein Albumin RPR Titer LABS NOTED. Assessment: 12/18/18 15:56 WITHDRAWAL SYMPTOMS. HYPERGLYCEMIA. HYPERTENSION. ELEVATED LIVER ENZYME LEVELS (AST, ALT, ALKALINE PHOSPHATASE). 12/18/18 15:57 Plan: CONTINUE DETOX. INCREASE DAILY PO WATER INTAKE. PATIENT SCHEDULED FOR D/C FROM DETOX UNIT TOMORROW.
[2018-12-18] MEDS: THIAMINE HCL 100 MG TABLET (FP) PO SCH (23:04)
[2018-12-18] MEDS: INSULIN (LEVEMIR) 100 UNITS/ML UNITS SQ SCH (23:05)
[2018-12-19] MEDS ORDERED: diazePAM 5 MG TABLET PO ONE (06:00)
[2018-12-19] MEDS ORDERED: INSULIN SLIDING SCALE (NOVOLOG) 1 VIAL SQ ONE ×2 (06:26→08:03)
[2018-12-19] MEDS: INSULIN SLIDING SCALE (NOVOLOG) 1 VIAL SQ SCH ×3 (06:36→19:44)
--- NOTE | 2018-12-19 08:50 | DS ---
[facility] Detox Discharge Summary Admission Date: 12/16/18 Discharge Date: 12/19/18 - History Present History: Alcohol Dependence - Physical Exam Results Vital Signs: Vital Signs Temperature 98.2 F 12/19/18 07:56 Pulse Rate 66 12/19/18 07:56 Respiratory Rate 18 12/19/18 07:56 Blood Pressure 153/91 12/19/18 07:56 O2 Sat by Pulse Oximetry (%) - Treatment Hospital Course: Detox Protocol Followed, Detoxed Safely, Responded well, Discharged Condition Good, Rehab Referral Accepted - Medication Discharge Medications: Ambulatory Orders Insulin (Novolog) [Novolog -] 15 units SQ ACDIN 03/27/17 Insulin (Novolog) [Novolog] 45 units SQ AM 03/27/17 Lisinopril [Prinivil -] 40 mg PO DAILY 03/27/17 traZODone HCL [Desyrel -] 50 mg PO HS #30 tablet 03/29/17 Atenolol [Tenormin -] 50 mg PO DAILY 12/16/18 Insulin Glargine,Hum.rec.anlog [Lantus (10mL VIAL) -] 30 units SCJ HS 12/16/18 Metformin HCl [Glucophage] 500 mg PO BID 12/16/18 - Diagnosis (1) Alcohol dependence with uncomplicated withdrawal Current Visit: Yes Status: Chronic (2) Elevated liver enzymes Current Visit: Yes Status: Acute (3) Essential (primary) hypertension Current Visit: Yes Status: Acute (4) Hyperglycemia Current Visit: Yes Status: Acute (5) Nicotine dependence Current Visit: Yes Status: Chronic Qualifiers: Nicotine product type: cigarettes Substance use status: uncomplicated Qualified Code(s): F17.210 - Nicotine dependence, cigarettes, uncomplicated (6) Alcohol-induced mood disorder Current Visit: No Status: Acute (7) Depression Current Visit: No Status: Acute (8) Depressive disorder Current Visit: No Status: Acute (9) IDDM (insulin dependent diabetes mellitus) Current Visit: Yes Status: Chronic (10) Insomnia Current Visit: No Status: Acute (11) MDD (major depressive disorder), recurrent episode, moderate Current Visit: No Status: Acute - AMA Did Patient Leave Against Medical Advice: No (pt referred to [facility] outpatient )
[2018-12-19] MEDS: ATENOLOL 50 MG TABLET (FP) PO SCH (10:49)
[2018-12-19] MEDS: PRENATAL VITAMINS W/ FOLIC ACID TABLET (FP) PO SCH (10:49)
[2018-12-19] MEDS: MELATONIN 5 MG TABLETS PO PRN (21:34)
[2018-12-19] MEDS: THIAMINE HCL 100 MG TABLET (FP) PO SCH (21:34)
[2018-12-19] MEDS: INSULIN (LEVEMIR) 100 UNITS/ML UNITS SQ SCH (21:36)
[2018-12-20] MEDS: INSULIN SLIDING SCALE (NOVOLOG) 1 VIAL SQ SCH ×3 (07:28→17:09)
[2018-12-20] MEDS: ATENOLOL 50 MG TABLET (FP) PO SCH (10:42)
[2018-12-20] MEDS: PRENATAL VITAMINS W/ FOLIC ACID TABLET (FP) PO SCH (10:42)
[2018-12-20] MEDS: hydrOXYzine HCL 25 MG TABLET (FP) PO PRN (10:43)
[2018-12-20] MEDS ORDERED: INSULIN (NOVOLOG) ASPART 100 UNITS/ML 10ML VIAL ONE ×2 (12:08→17:08)
[2018-12-20] MEDS ORDERED: metFORMIN HCL 500 MG TABLET (FP) PO ONE (12:30)
[2018-12-20] MEDS: metFORMIN HCL 500 MG TABLET (FP) PO SCH (17:08)
[2018-12-20] MEDS: THIAMINE HCL 100 MG TABLET (FP) PO SCH (21:41)
[2018-12-20] MEDS: INSULIN (LEVEMIR) 100 UNITS/ML UNITS SQ SCH (21:42)
[2018-12-20] MEDS: MELATONIN 5 MG TABLETS PO PRN (21:43)
[2018-12-21] MEDS: metFORMIN HCL 500 MG TABLET (FP) PO SCH ×2 (06:30→16:56)
[2018-12-21] MEDS ORDERED: INSULIN (NOVOLOG) ASPART 100 UNITS/ML 10ML VIAL ONE (06:32)
[2018-12-21] MEDS: INSULIN SLIDING SCALE (NOVOLOG) 1 VIAL SQ SCH ×3 (06:33→16:56)
--- NOTE | 2018-12-21 09:31 | CONSULT ---
[facility] Psychiatric Consult - Data Date of interview: 12/21/18 Admission source: Self-referred Identifying data: Mr Montoya is a 58 years old male, father of a 30 years old daughter, unemployed receiving SSD, homeless seeking detox treatment for alcohol. Substance Abuse History: Reports history of alcohol use. Refer to addiction counselor's summary for further information Medical History: Significant for hypertension, type 2 diabetes mellitus, hepatitis C and history of cholelithiasis. Smokes cigarettes 1 ppd Psychiatric History: Patient is known to group underwriter fron a previous encounter during an admission in March 2017 to this facility. Historical narrative remains consistent. Reports history of previous psychiatric treatment for depression, anxiety and insomnia in [place] prior to his immigration to [facility] in 2016. Claims to have had multiple psychiatric hospitalizations and one suicidal attempt by overdose on pills while in [place]. There he was prescribed Klonopin, Ativan and Trazadone. Reports not receiving outpatient psychiatric treament since he has been in [facility]. When he saw group underwriter in March 2017, he was prescribed Trazadone 50 mg/hs for insomnia. At present, denies experiencing depressive and anxiety symptoms, S/H ideations. However reports sleeping poorly. Requests to be ordered Trazadone for insomnia Physical/Sexual Abuse/Trauma History: Denies history of emotional, phusical or sexual abuse as well as DV relationship Additional Comment: Denies criminal history Mental Status Exam - Mental Status Exam Alert and Oriented to: Time, Place, Person Cognitive Function: Fair Patient Appearance: Disheveled Mood: Hopeful, Euthymic Patient Behavior: Cooperative Speech Pattern: Clear Voice Loudness: Normal Thought Process: Intact Thought Disorder: Not Present Hallucinations: Denies Suicidal Ideation: Denies Homicidal Ideation: Denies Insight/Judgement: Poor Sleep: Poorly Appetite: Good Muscle strength/Tone: Normal Gait/Station: Normal Psychiatric Findings - Problem List ([place] 1, 2,3) (1) Depressive disorder Current Visit: No Status: Acute (2) MDD (major depressive disorder), recurrent episode, moderate Current Visit: No Status: Ruled-out (3) Alcohol-induced sleep disorder Current Visit: Yes Status: Acute (4) Alcohol dependence Current Visit: Yes Status: Acute (5) Nicotine dependence Current Visit: Yes Status: Chronic Qualifiers: Nicotine product type: cigarettes Substance use status: uncomplicated Qualified Code(s): F17.210 - Nicotine dependence, cigarettes, uncomplicated (6) Essential (primary) hypertension Current Visit: Yes Status: Chronic (7) IDDM (insulin dependent diabetes mellitus) Current Visit: Yes Status: Chronic (8) Hepatitis C Current Visit: Yes Status: Chronic (9) Cholelithiasis Current Visit: Yes Status: Resolved - Initial Treatment Plan Initial Treatment Plan: 1) Start Trazadone 50 mg po HS. 2) Continue inpatient detoxification
[2018-12-21] MEDS: hydrOXYzine HCL 25 MG TABLET (FP) PO PRN (10:48)
[2018-12-21] MEDS: PRENATAL VITAMINS W/ FOLIC ACID TABLET (FP) PO SCH (10:48)
[2018-12-21] MEDS: ATENOLOL 50 MG TABLET (FP) PO SCH (10:49)
[2018-12-21] MEDS: traZODone HCL 50 MG TABLET (FP) PO SCH (20:59)
[2018-12-21] MEDS: MELATONIN 5 MG TABLETS PO PRN (20:59)
[2018-12-21] MEDS: THIAMINE HCL 100 MG TABLET (FP) PO SCH (20:59)
[2018-12-21] MEDS: INSULIN (LEVEMIR) 100 UNITS/ML UNITS SQ SCH (21:00)
[2018-12-22] MEDS: metFORMIN HCL 500 MG TABLET (FP) PO SCH ×2 (06:38→17:05)
[2018-12-22] MEDS: INSULIN SLIDING SCALE (NOVOLOG) 1 VIAL SQ SCH ×4 (06:39→22:30)
[2018-12-22] MEDS: ATENOLOL 50 MG TABLET (FP) PO SCH (10:48)
[2018-12-22] MEDS: PRENATAL VITAMINS W/ FOLIC ACID TABLET (FP) PO SCH (10:48)
[2018-12-22] MEDS ORDERED: INSULIN (NOVOLOG) ASPART 100 UNITS/ML 10ML VIAL SQ ONE (12:29)
--- NOTE | 2018-12-22 12:32 | PN ---
S Progress Note Note: BGM AT 12PM 333 mg/dl GIVE NOVOLOG R 6 UNITS SC x 1 DOSE NOW. QFT POSITIVE RESULT, PREVIOUSLY NEGATIVE PPD ON 03/29/17 IN 2017 ADMISSION. PLAN:CHEST XRAY IN A.M R/O PATHOLOGY
[2018-12-22] MEDS: THIAMINE HCL 100 MG TABLET (FP) PO SCH (21:47)
[2018-12-22] MEDS: INSULIN (LEVEMIR) 100 UNITS/ML UNITS SQ SCH (21:47)
[2018-12-22] MEDS: traZODone HCL 50 MG TABLET (FP) PO SCH (21:47)
[2018-12-22] MEDS ORDERED: INSULIN (NOVOLOG) ASPART 100 UNITS/ML 10ML VIAL ONE (22:32)
[2018-12-22] MEDS ORDERED: INSULIN (LEVEMIR) 100 UNITS/ML UNITS SQ ONE (22:32)
[2018-12-23] MEDS: metFORMIN HCL 500 MG TABLET (FP) PO SCH ×2 (06:24→17:12)
[2018-12-23] MEDS: INSULIN SLIDING SCALE (NOVOLOG) 1 VIAL SQ SCH ×4 (07:25→22:15)
[2018-12-23] MEDS: PRENATAL VITAMINS W/ FOLIC ACID TABLET (FP) PO SCH (10:23)
[2018-12-23] MEDS: ATENOLOL 50 MG TABLET (FP) PO SCH (10:23)
[2018-12-23] MEDS ORDERED: INSULIN (NOVOLOG) ASPART 100 UNITS/ML 10ML VIAL ONE ×2 (12:07→12:24)
[2018-12-23] MEDS ORDERED: INSULIN (NOVOLOG) ASPART 100 UNITS/ML 10ML VIAL SQ ONE (12:18)
[2018-12-23] MEDS: INSULIN (LEVEMIR) 100 UNITS/ML UNITS SQ SCH (21:59)
[2018-12-23] MEDS: THIAMINE HCL 100 MG TABLET (FP) PO SCH (22:00)
[2018-12-23] MEDS: traZODone HCL 50 MG TABLET (FP) PO SCH (22:00)
[2018-12-24] MEDS: metFORMIN HCL 500 MG TABLET (FP) PO SCH ×2 (07:29→16:46)
[2018-12-24] MEDS ORDERED: INSULIN (NOVOLOG) ASPART 100 UNITS/ML 10ML VIAL ONE ×2 (07:42→11:56)
[2018-12-24] MEDS: INSULIN SLIDING SCALE (NOVOLOG) 1 VIAL SQ SCH ×4 (08:04→21:15)
[2018-12-24] MEDS: ATENOLOL 50 MG TABLET (FP) PO SCH (10:29)
[2018-12-24] MEDS: PRENATAL VITAMINS W/ FOLIC ACID TABLET (FP) PO SCH (10:29)
[2018-12-24] MEDS: THIAMINE HCL 100 MG TABLET (FP) PO SCH (21:12)
[2018-12-24] MEDS: traZODone HCL 50 MG TABLET (FP) PO SCH (21:12)
[2018-12-24] MEDS: INSULIN (LEVEMIR) 100 UNITS/ML UNITS SQ SCH (21:15)
[2018-12-25] MEDS: metFORMIN HCL 500 MG TABLET (FP) PO SCH ×2 (06:55→17:00)
[2018-12-25] MEDS ORDERED: INSULIN (NOVOLOG) ASPART 100 UNITS/ML 10ML VIAL ONE ×4 (07:23→22:07)
[2018-12-25] MEDS: INSULIN SLIDING SCALE (NOVOLOG) 1 VIAL SQ SCH ×4 (07:30→21:12)
[2018-12-25] MEDS: ATENOLOL 50 MG TABLET (FP) PO SCH (10:45)
[2018-12-25] MEDS: PRENATAL VITAMINS W/ FOLIC ACID TABLET (FP) PO SCH (10:45)
[2018-12-25] MEDS: traZODone HCL 50 MG TABLET (FP) PO SCH (21:16)
[2018-12-25] MEDS: INSULIN (LEVEMIR) 100 UNITS/ML UNITS SQ SCH (21:16)
[2018-12-25] MEDS: THIAMINE HCL 100 MG TABLET (FP) PO SCH (21:16)
[2018-12-26] MEDS: metFORMIN HCL 500 MG TABLET (FP) PO SCH ×2 (06:19→16:59)
[2018-12-26] MEDS ORDERED: INSULIN (NOVOLOG) ASPART 100 UNITS/ML 10ML VIAL ONE (06:25)
[2018-12-26] MEDS: INSULIN SLIDING SCALE (NOVOLOG) 1 VIAL SQ SCH ×4 (07:23→21:51)
[2018-12-26] MEDS: PRENATAL VITAMINS W/ FOLIC ACID TABLET (FP) PO SCH (10:16)
[2018-12-26] MEDS: ATENOLOL 50 MG TABLET (FP) PO SCH (10:16)
[2018-12-26] MEDS: traZODone HCL 50 MG TABLET (FP) PO SCH (21:50)
[2018-12-26] MEDS: THIAMINE HCL 100 MG TABLET (FP) PO SCH (21:50)
[2018-12-26] MEDS: INSULIN (LEVEMIR) 100 UNITS/ML UNITS SQ SCH (21:50)
[2018-12-27] MEDS: metFORMIN HCL 500 MG TABLET (FP) PO SCH ×2 (07:31→17:13)
[2018-12-27] MEDS ORDERED: INSULIN (NOVOLOG) ASPART 100 UNITS/ML 10ML VIAL ONE ×2 (07:32→12:14)
[2018-12-27] MEDS: INSULIN SLIDING SCALE (NOVOLOG) 1 VIAL SQ SCH ×4 (07:34→21:49)
[2018-12-27] MEDS: PRENATAL VITAMINS W/ FOLIC ACID TABLET (FP) PO SCH (10:17)
[2018-12-27] MEDS: ATENOLOL 50 MG TABLET (FP) PO SCH (10:17)
[2018-12-27] MEDS: traZODone HCL 50 MG TABLET (FP) PO SCH (21:49)
[2018-12-27] MEDS: THIAMINE HCL 100 MG TABLET (FP) PO SCH (21:49)
[2018-12-27] MEDS: INSULIN (LEVEMIR) 100 UNITS/ML UNITS SQ SCH (21:50)
[2018-12-28] MEDS: metFORMIN HCL 500 MG TABLET (FP) PO SCH ×2 (07:12→17:09)
[2018-12-28] MEDS: INSULIN SLIDING SCALE (NOVOLOG) 1 VIAL SQ SCH ×4 (07:13→21:35)
[2018-12-28] MEDS: ATENOLOL 50 MG TABLET (FP) PO SCH (10:33)
[2018-12-28] MEDS: PRENATAL VITAMINS W/ FOLIC ACID TABLET (FP) PO SCH (10:33)
[2018-12-28] MEDS ORDERED: INSULIN (NOVOLOG) ASPART 100 UNITS/ML 10ML VIAL ONE ×2 (11:57→17:22)
[2018-12-28] MEDS: INSULIN (LEVEMIR) 100 UNITS/ML UNITS SQ SCH (21:33)
[2018-12-28] MEDS: traZODone HCL 50 MG TABLET (FP) PO SCH (21:34)
[2018-12-28] MEDS: THIAMINE HCL 100 MG TABLET (FP) PO SCH (21:34)
[2018-12-29] MEDS: metFORMIN HCL 500 MG TABLET (FP) PO SCH ×2 (06:32→17:17)
[2018-12-29] MEDS: INSULIN SLIDING SCALE (NOVOLOG) 1 VIAL SQ SCH ×4 (07:30→21:55)
[2018-12-29] MEDS ORDERED: INSULIN (NOVOLOG) ASPART 100 UNITS/ML 10ML VIAL ONE ×2 (07:34→12:04)
[2018-12-29] MEDS: PRENATAL VITAMINS W/ FOLIC ACID TABLET (FP) PO SCH (10:32)
[2018-12-29] MEDS: ATENOLOL 50 MG TABLET (FP) PO SCH (10:32)
[2018-12-29] MEDS ORDERED: LISINOPRIL 20 MG TABLET (FP) PO ONE (11:45)
[2018-12-29] MEDS: THIAMINE HCL 100 MG TABLET (FP) PO SCH (21:54)
[2018-12-29] MEDS: traZODone HCL 50 MG TABLET (FP) PO SCH (21:54)
[2018-12-29] MEDS: INSULIN (LEVEMIR) 100 UNITS/ML UNITS SQ SCH (21:55)
[2018-12-29] MEDS: LISINOPRIL 20 MG TABLET (FP) PO SCH (22:33)
[2018-12-30] MEDS: metFORMIN HCL 500 MG TABLET (FP) PO SCH ×2 (07:22→16:58)
[2018-12-30] MEDS: INSULIN SLIDING SCALE (NOVOLOG) 1 VIAL SQ SCH ×4 (07:29→21:43)
[2018-12-30] MEDS: PRENATAL VITAMINS W/ FOLIC ACID TABLET (FP) PO SCH (10:27)
[2018-12-30] MEDS: LISINOPRIL 20 MG TABLET (FP) PO SCH ×2 (10:28→21:40)
[2018-12-30] MEDS: ATENOLOL 50 MG TABLET (FP) PO SCH (10:28)
[2018-12-30] MEDS ORDERED: INSULIN (NOVOLOG) ASPART 100 UNITS/ML 10ML VIAL ONE (11:50)
[2018-12-30] MEDS: THIAMINE HCL 100 MG TABLET (FP) PO SCH (21:39)
[2018-12-30] MEDS: MELATONIN 5 MG TABLETS PO PRN (21:40)
[2018-12-30] MEDS: traZODone HCL 50 MG TABLET (FP) PO SCH (21:40)
[2018-12-30] MEDS: INSULIN (LEVEMIR) 100 UNITS/ML UNITS SQ SCH (21:45)
[2018-12-31] MEDS: metFORMIN HCL 500 MG TABLET (FP) PO SCH ×2 (06:39→16:30)
[2018-12-31] MEDS: INSULIN SLIDING SCALE (NOVOLOG) 1 VIAL SQ SCH ×4 (07:21→21:41)
[2018-12-31] MEDS: PRENATAL VITAMINS W/ FOLIC ACID TABLET (FP) PO SCH (09:53)
[2018-12-31] MEDS: LISINOPRIL 20 MG TABLET (FP) PO SCH ×2 (09:53→21:37)
[2018-12-31] MEDS: ATENOLOL 50 MG TABLET (FP) PO SCH (09:53)
[2018-12-31] MEDS ORDERED: INSULIN (NOVOLOG) ASPART 100 UNITS/ML 10ML VIAL ONE (16:25)
[2018-12-31] MEDS: MELATONIN 5 MG TABLETS PO PRN (21:37)
[2018-12-31] MEDS: traZODone HCL 50 MG TABLET (FP) PO SCH (21:37)
[2018-12-31] MEDS: INSULIN (LEVEMIR) 100 UNITS/ML UNITS SQ SCH (21:41)
[2018-12-31] MEDS: THIAMINE HCL 100 MG TABLET (FP) PO SCH (22:00)
[2019-01-01] MEDS: metFORMIN HCL 500 MG TABLET (FP) PO SCH ×2 (06:32→16:34)
[2019-01-01] MEDS: INSULIN SLIDING SCALE (NOVOLOG) 1 VIAL SQ SCH ×4 (06:33→21:48)
[2019-01-01] MEDS: ATENOLOL 50 MG TABLET (FP) PO SCH (10:20)
[2019-01-01] MEDS: PRENATAL VITAMINS W/ FOLIC ACID TABLET (FP) PO SCH (10:20)
[2019-01-01] MEDS: LISINOPRIL 20 MG TABLET (FP) PO SCH ×2 (10:20→21:45)
[2019-01-01] MEDS: THIAMINE HCL 100 MG TABLET (FP) PO SCH (21:45)
[2019-01-01] MEDS: traZODone HCL 50 MG TABLET (FP) PO SCH (21:45)
[2019-01-01] MEDS: INSULIN (LEVEMIR) 100 UNITS/ML UNITS SQ SCH (21:47)
[2019-01-01] MEDS: MELATONIN 5 MG TABLETS PO PRN (21:49)
[2019-01-02] MEDS: metFORMIN HCL 500 MG TABLET (FP) PO SCH ×2 (06:56→16:53)
[2019-01-02] MEDS: INSULIN SLIDING SCALE (NOVOLOG) 1 VIAL SQ SCH ×4 (07:22→21:44)
[2019-01-02] MEDS: ATENOLOL 50 MG TABLET (FP) PO SCH (10:08)
[2019-01-02] MEDS: PRENATAL VITAMINS W/ FOLIC ACID TABLET (FP) PO SCH (10:08)
[2019-01-02] MEDS: LISINOPRIL 20 MG TABLET (FP) PO SCH ×2 (10:08→21:43)
[2019-01-02] MEDS: INSULIN (LEVEMIR) 100 UNITS/ML UNITS SQ SCH (21:41)
[2019-01-02] MEDS: traZODone HCL 50 MG TABLET (FP) PO SCH (21:43)
[2019-01-02] MEDS: THIAMINE HCL 100 MG TABLET (FP) PO SCH (21:43)
[2019-01-02] MEDS: MELATONIN 5 MG TABLETS PO PRN (21:44)
[2019-01-02] MEDS ORDERED: INSULIN (NOVOLOG) ASPART 100 UNITS/ML 10ML VIAL ONE (22:03)
[2019-01-03] MEDS: metFORMIN HCL 500 MG TABLET (FP) PO SCH ×2 (06:49→16:30)
[2019-01-03] MEDS: INSULIN SLIDING SCALE (NOVOLOG) 1 VIAL SQ SCH ×4 (07:15→21:50)
[2019-01-03] MEDS: LISINOPRIL 20 MG TABLET (FP) PO SCH ×2 (10:24→21:47)
[2019-01-03] MEDS: PRENATAL VITAMINS W/ FOLIC ACID TABLET (FP) PO SCH (10:24)
[2019-01-03] MEDS: ATENOLOL 50 MG TABLET (FP) PO SCH (10:24)
[2019-01-03] MEDS ORDERED: INSULIN (NOVOLOG) ASPART 100 UNITS/ML 10ML VIAL ONE ×2 (12:00→16:30)
[2019-01-03] MEDS: THIAMINE HCL 100 MG TABLET (FP) PO SCH (21:47)
[2019-01-03] MEDS: MELATONIN 5 MG TABLETS PO PRN (21:47)
[2019-01-03] MEDS: traZODone HCL 50 MG TABLET (FP) PO SCH (21:47)
[2019-01-03] MEDS: INSULIN (LEVEMIR) 100 UNITS/ML UNITS SQ SCH (21:47)
[2019-01-03 22:11] VITALS: PULSE 67
[2019-01-04 06:49] VITALS: BP 141/81; TEMP 98
[2019-01-04] MEDS: INSULIN SLIDING SCALE (NOVOLOG) 1 VIAL SQ SCH (06:52)
[2019-01-04] MEDS: metFORMIN HCL 500 MG TABLET (FP) PO SCH (06:52)
[2019-01-04] MEDS: LISINOPRIL 20 MG TABLET (FP) PO SCH (09:39)
[2019-01-04] MEDS: ATENOLOL 50 MG TABLET (FP) PO SCH (09:40)
[2019-01-04] MEDS: PRENATAL VITAMINS W/ FOLIC ACID TABLET (FP) PO SCH (09:40)
--- NOTE | 2019-01-04 09:43 | PN ---
[facility] Progress Note (SOAP) Subjective: PT REQUESTS FOR EARLY DISCHARGE TODAY. ADMITTED TO REHAB ON 12/19/18 AND DISCHARGING 01/04/19. PER NURSING AND COUNSELORS PT ATTENDED SOME GROUPS WITH MINIMAL PARTICIPATION. PT'S SPORADIC LACK OF COMPLIANCE WITH DIABETIC NURSING CARE TREATMENT WAS ADDRESSED WHILE IN REHAB. PT MET WITH HIS COUNSELOR , MS SERG COUCH TODAY AND PATIENT WAS REFERRED FOR CD AFTERCARE AT [place], [place]. PT REPORTS RECEIVES PRIMARY CARE FROM SAME [facility] AND WILL BE GOING THERE TODAY. PT REPORTS HE HAS ALL HIS MEDICATIONS WITH HIM IN HIS BAG IN THE SECURITY STORAGE. DENIES S/H/I. Objective: 01/04/19 10:29 EXAM: Vital Signs - 24 hr 01/03/19 01/04/19 01/04/19 21:00 00:30 03:30 Temperature Pulse Rate 67 Respiratory 18 18 Rate Blood Pressure 153/88 01/04/19 06:48 Temperature 98.0 F Pulse Rate 67 Respiratory 18 Rate Blood Pressure 141/81 Laboratory Tests 12/16/18 12/17/18 12/17/18 22:30 05:44 08:00 WBC 7.7 RBC 4.43 Hgb 14.0 Hct 41.4 MCV 93.6 MCH 31.6 MCHC 33.7 RDW 13.1 Plt Count 236 MPV 9.1 Sodium Potassium Chloride Carbon Dioxide Anion Gap BUN Creatinine Est GFR (CKD-EPI)AfAm Est GFR (CKD-EPI)NonAf POC Glucometer 383 386 Random Glucose Calcium Total Bilirubin AST ALT Alkaline Phosphatase Total Protein Albumin RPR Titer TB Test (QFT) Nil TB Test (QFT) Mitogen TB Test (QFT) Antigen TB Test (QFT) TB Positive Criteria 12/17/18 12/17/18 12/17/18 08:00 08:00 08:09 WBC RBC Hgb Hct MCV MCH MCHC RDW Plt Count MPV Sodium 137 Potassium 4.3 Chloride 102 Carbon Dioxide 30 Anion Gap 4 L BUN 16.1 Creatinine 1.0 Est GFR (CKD-EPI)AfAm 96.40 Est GFR (CKD-EPI)NonAf 83.18 POC Glucometer 354 Random Glucose 402 H* Calcium 8.9 Total Bilirubin 0.4 AST 56 H ALT 77 H Alkaline Phosphatase 124 H Total Protein 6.6 Albumin 3.3 L RPR Titer Nonreactive TB Test (QFT) Nil TB Test (QFT) Mitogen TB Test (QFT) Antigen TB Test (QFT) TB Positive Criteria 12/17/18 12/17/18 12/18/18 16:41 22:49 00:11 WBC RBC Hgb Hct MCV MCH MCHC RDW Plt Count MPV Sodium Potassium Chloride Carbon Dioxide Anion Gap BUN Creatinine Est GFR (CKD-EPI)AfAm Est GFR (CKD-EPI)NonAf POC Glucometer [phone] Random Glucose Calcium Total Bilirubin AST ALT Alkaline Phosphatase Total Protein Albumin RPR Titer TB Test (QFT) Nil TB Test (QFT) Mitogen TB Test (QFT) Antigen TB Test (QFT) TB Positive Criteria 12/18/18 12/18/18 12/19/18 06:20 16:31 06:20 WBC RBC Hgb Hct MCV MCH MCHC RDW Plt Count MPV Sodium Potassium Chloride Carbon Dioxide Anion Gap BUN Creatinine Est GFR (CKD-EPI)AfAm Est GFR (CKD-EPI)NonAf POC Glucometer 341 394 354 Random Glucose Calcium Total Bilirubin AST ALT Alkaline Phosphatase Total Protein Albumin RPR Titer TB Test (QFT) Nil TB Test (QFT) Mitogen TB Test (QFT) Antigen TB Test (QFT) TB Positive Criteria 12/19/18 12/19/18 12/19/18 17:03 17:06 19:43 WBC RBC Hgb Hct MCV MCH MCHC RDW Plt Count MPV Sodium Potassium Chloride Carbon Dioxide Anion Gap BUN Creatinine Est GFR (CKD-EPI)AfAm Est GFR (CKD-EPI)NonAf POC Glucometer [phone] Random Glucose Calcium Total Bilirubin AST ALT Alkaline Phosphatase Total Protein Albumin RPR Titer TB Test (QFT) Nil TB Test (QFT) Mitogen TB Test (QFT) Antigen TB Test (QFT) TB Positive Criteria 12/19/18 12/20/18 12/20/18 21:36 06:30 08:55 WBC RBC Hgb Hct MCV MCH MCHC RDW Plt Count MPV Sodium Potassium Chloride Carbon Dioxide Anion Gap BUN Creatinine Est GFR (CKD-EPI)AfAm Est GFR (CKD-EPI)NonAf POC Glucometer 363 297 Random Glucose Calcium Total Bilirubin AST ALT Alkaline Phosphatase Total Protein Albumin RPR Titer TB Test (QFT) Nil 0.10 TB Test (QFT) Mitogen >10.00 TB Test (QFT) Antigen >10.00 TB Test (QFT) Positive H TB Positive Criteria 12/20/18 12/20/18 12/20/18 12:03 16:40 20:46 WBC RBC Hgb Hct MCV MCH MCHC RDW Plt Count MPV Sodium Potassium Chloride Carbon Dioxide Anion Gap BUN Creatinine Est GFR (CKD-EPI)AfAm Est GFR (CKD-EPI)NonAf POC Glucometer [phone] Random Glucose Calcium Total Bilirubin AST ALT Alkaline Phosphatase Total Protein Albumin RPR Titer TB Test (QFT) Nil TB Test (QFT) Mitogen TB Test (QFT) Antigen TB Test (QFT) TB Positive Criteria 12/21/18 12/21/18 12/21/18 06:29 11:49 16:30 WBC RBC Hgb Hct MCV MCH MCHC RDW Plt Count MPV Sodium Potassium Chloride Carbon Dioxide Anion Gap BUN Creatinine Est GFR (CKD-EPI)AfAm Est GFR (CKD-EPI)NonAf POC Glucometer [phone] Random Glucose Calcium Total Bilirubin AST ALT Alkaline Phosphatase Total Protein Albumin RPR Titer TB Test (QFT) Nil TB Test (QFT) Mitogen TB Test (QFT) Antigen TB Test (QFT) TB Positive Criteria 12/21/18 12/22/18 12/22/18 20:55 06:00 12:07 WBC RBC Hgb Hct MCV MCH MCHC RDW Plt Count MPV Sodium Potassium Chloride Carbon Dioxide Anion Gap BUN Creatinine Est GFR (CKD-EPI)AfAm Est GFR (CKD-EPI)NonAf POC Glucometer [phone] Random Glucose Calcium Total Bilirubin AST ALT Alkaline Phosphatase Total Protein Albumin RPR Titer TB Test (QFT) Nil TB Test (QFT) Mitogen TB Test (QFT) Antigen TB Test (QFT) TB Positive Criteria 12/22/18 12/22/18 12/23/18 16:51 22:28 06:23 WBC RBC Hgb Hct MCV MCH MCHC RDW Plt Count MPV Sodium Potassium Chloride Carbon Dioxide Anion Gap BUN Creatinine Est GFR (CKD-EPI)AfAm Est GFR (CKD-EPI)NonAf POC Glucometer [phone] Random Glucose Calcium Total Bilirubin AST ALT Alkaline Phosphatase Total Protein Albumin RPR Titer TB Test (QFT) Nil TB Test (QFT) Mitogen TB Test (QFT) Antigen TB Test (QFT) TB Positive Criteria 07/12/19 07/12/19 07/12/19 12:05 17:12 21:58 WBC RBC Hgb Hct MCV MCH MCHC RDW Plt Count MPV Sodium Potassium Chloride Carbon Dioxide Anion Gap BUN Creatinine Est GFR (CKD-EPI)AfAm Est GFR (CKD-EPI)NonAf POC Glucometer [phone] Random Glucose Calcium Total Bilirubin AST ALT Alkaline Phosphatase Total Protein Albumin RPR Titer TB Test (QFT) Nil TB Test (QFT) Mitogen TB Test (QFT) Antigen TB Test (QFT) TB Positive Criteria 12/24/18 12/24/18 12/24/18 07:22 11:56 16:45 WBC RBC Hgb Hct MCV MCH MCHC RDW Plt Count MPV Sodium Potassium Chloride Carbon Dioxide Anion Gap BUN Creatinine Est GFR (CKD-EPI)AfAm Est GFR (CKD-EPI)NonAf POC Glucometer 255 267 394 Random Glucose Calcium Total Bilirubin AST ALT Alkaline Phosphatase Total Protein Albumin RPR Titer TB Test (QFT) Nil TB Test (QFT) Mitogen TB Test (QFT) Antigen TB Test (QFT) TB Positive Criteria 12/24/18 12/25/18 12/25/18 20:51 05:24 11:53 WBC RBC Hgb Hct MCV MCH MCHC RDW Plt Count MPV Sodium Potassium Chloride Carbon Dioxide Anion Gap BUN Creatinine Est GFR (CKD-EPI)AfAm Est GFR (CKD-EPI)NonAf POC Glucometer [phone] Random Glucose Calcium Total Bilirubin AST ALT Alkaline Phosphatase Total Protein Albumin RPR Titer TB Test (QFT) Nil TB Test (QFT) Mitogen TB Test (QFT) Antigen TB Test (QFT) TB Positive Criteria 12/25/18 12/25/18 12/26/18 16:58 21:11 06:18 WBC RBC Hgb Hct MCV MCH MCHC RDW Plt Count MPV Sodium Potassium Chloride Carbon Dioxide Anion Gap BUN Creatinine Est GFR (CKD-EPI)AfAm Est GFR (CKD-EPI)NonAf POC Glucometer [phone] Random Glucose Calcium Total Bilirubin AST ALT Alkaline Phosphatase Total Protein Albumin RPR Titer TB Test (QFT) Nil TB Test (QFT) Mitogen TB Test (QFT) Antigen TB Test (QFT) TB Positive Criteria 12/26/18 12/26/18 12/27/18 16:58 21:49 07:30 WBC RBC Hgb Hct MCV MCH MCHC RDW Plt Count MPV Sodium Potassium Chloride Carbon Dioxide Anion Gap BUN Creatinine Est GFR (CKD-EPI)AfAm Est GFR (CKD-EPI)NonAf POC Glucometer 320 278 288 Random Glucose Calcium Total Bilirubin AST ALT Alkaline Phosphatase Total Protein Albumin RPR Titer TB Test (QFT) Nil TB Test (QFT) Mitogen TB Test (QFT) Antigen TB Test (QFT) TB Positive Criteria 12/27/18 12/27/18 12/27/18 11:56 17:14 21:43 WBC RBC Hgb Hct MCV MCH MCHC RDW Plt Count MPV Sodium Potassium Chloride Carbon Dioxide Anion Gap BUN Creatinine Est GFR (CKD-EPI)AfAm Est GFR (CKD-EPI)NonAf POC Glucometer [phone] Random Glucose Calcium Total Bilirubin AST ALT Alkaline Phosphatase Total Protein Albumin RPR Titer TB Test (QFT) Nil TB Test (QFT) Mitogen TB Test (QFT) Antigen TB Test (QFT) TB Positive Criteria 12/28/18 12/28/18 12/28/18 06:25 11:30 17:08 WBC RBC Hgb Hct MCV MCH MCHC RDW Plt Count MPV Sodium Potassium Chloride Carbon Dioxide Anion Gap BUN Creatinine Est GFR (CKD-EPI)AfAm Est GFR (CKD-EPI)NonAf POC Glucometer [phone] Random Glucose Calcium Total Bilirubin AST ALT Alkaline Phosphatase Total Protein Albumin RPR Titer TB Test (QFT) Nil TB Test (QFT) Mitogen TB Test (QFT) Antigen TB Test (QFT) TB Positive Criteria 12/28/18 12/29/18 12/29/18 21:01 06:30 11:56 WBC RBC Hgb Hct MCV MCH MCHC RDW Plt Count MPV Sodium Potassium Chloride Carbon Dioxide Anion Gap BUN Creatinine Est GFR (CKD-EPI)AfAm Est GFR (CKD-EPI)NonAf POC Glucometer [phone] Random Glucose Calcium Total Bilirubin AST ALT Alkaline Phosphatase Total Protein Albumin RPR Titer TB Test (QFT) Nil TB Test (QFT) Mitogen TB Test (QFT) Antigen TB Test (QFT) TB Positive Criteria 12/29/18 12/29/18 12/30/18 17:14 21:53 11:48 WBC RBC Hgb Hct MCV MCH MCHC RDW Plt Count MPV Sodium Potassium Chloride Carbon Dioxide Anion Gap BUN Creatinine Est GFR (CKD-EPI)AfAm Est GFR (CKD-EPI)NonAf POC Glucometer [phone] Random Glucose Calcium Total Bilirubin AST ALT Alkaline Phosphatase Total Protein Albumin RPR Titer TB Test (QFT) Nil TB Test (QFT) Mitogen TB Test (QFT) Antigen TB Test (QFT) TB Positive Criteria 12/30/18 12/30/18 12/31/18 16:57 21:43 06:38 WBC RBC Hgb Hct MCV MCH MCHC RDW Plt Count MPV Sodium Potassium Chloride Carbon Dioxide Anion Gap BUN Creatinine Est GFR (CKD-EPI)AfAm Est GFR (CKD-EPI)NonAf POC Glucometer [phone] Random Glucose Calcium Total Bilirubin AST ALT Alkaline Phosphatase Total Protein Albumin RPR Titer TB Test (QFT) Nil TB Test (QFT) Mitogen TB Test (QFT) Antigen TB Test (QFT) TB Positive Criteria 12/31/18 12/31/18 01/01/19 16:33 21:39 06:32 WBC RBC Hgb Hct MCV MCH MCHC RDW Plt Count MPV Sodium Potassium Chloride Carbon Dioxide Anion Gap BUN Creatinine Est GFR (CKD-EPI)AfAm Est GFR (CKD-EPI)NonAf POC Glucometer 228 242 121 Random Glucose Calcium Total Bilirubin AST ALT Alkaline Phosphatase Total Protein Albumin RPR Titer TB Test (QFT) Nil TB Test (QFT) Mitogen TB Test (QFT) Antigen TB Test (QFT) TB Positive Criteria 01/01/19 01/01/19 01/02/19 16:32 21:47 06:55 WBC RBC Hgb Hct MCV MCH MCHC RDW Plt Count MPV Sodium Potassium Chloride Carbon Dioxide Anion Gap BUN Creatinine Est GFR (CKD-EPI)AfAm Est GFR (CKD-EPI)NonAf POC Glucometer 235 265 180 Random Glucose Calcium Total Bilirubin AST ALT Alkaline Phosphatase Total Protein Albumin RPR Titer TB Test (QFT) Nil TB Test (QFT) Mitogen TB Test (QFT) Antigen TB Test (QFT) TB Positive Criteria 01/02/19 01/02/19 01/03/19 16:53 21:40 06:48 WBC RBC Hgb Hct MCV MCH MCHC RDW Plt Count MPV Sodium Potassium Chloride Carbon Dioxide Anion Gap BUN Creatinine Est GFR (CKD-EPI)AfAm Est GFR (CKD-EPI)NonAf POC Glucometer [phone] Random Glucose Calcium Total Bilirubin AST ALT Alkaline Phosphatase Total Protein Albumin RPR Titer TB Test (QFT) Nil TB Test (QFT) Mitogen TB Test (QFT) Antigen TB Test (QFT) TB Positive Criteria 01/03/19 01/03/19 01/03/19 11:57 16:27 21:03 WBC RBC Hgb Hct MCV MCH MCHC RDW Plt Count MPV Sodium Potassium Chloride Carbon Dioxide Anion Gap BUN Creatinine Est GFR (CKD-EPI)AfAm Est GFR (CKD-EPI)NonAf POC Glucometer [phone] Random Glucose Calcium Total Bilirubin AST ALT Alkaline Phosphatase Total Protein Albumin RPR Titer TB Test (QFT) Nil TB Test (QFT) Mitogen TB Test (QFT) Antigen TB Test (QFT) TB Positive Criteria 01/04/19 06:50 WBC RBC Hgb Hct MCV MCH MCHC RDW Plt Count MPV Sodium Potassium Chloride Carbon Dioxide Anion Gap BUN Creatinine Est GFR (CKD-EPI)AfAm Est GFR (CKD-EPI)NonAf POC Glucometer 218 Random Glucose Calcium Total Bilirubin AST ALT Alkaline Phosphatase Total Protein Albumin RPR Titer TB Test (QFT) Nil TB Test (QFT) Mitogen TB Test (QFT) Antigen TB Test (QFT) TB Positive Criteria Home Medications Medication Instructions Recorded Insulin (Novolog) [Novolog -] 15 units SQ ACDIN 03/27/17 Insulin (Novolog) [Novolog] 45 units SQ AM 03/27/17 Lisinopril [Prinivil -] 40 mg PO DAILY 03/27/17 traZODone HCL [Desyrel -] 50 mg PO HS #30 tablet 03/29/17 Atenolol [Tenormin -] 50 mg PO DAILY 12/16/18 Insulin Glargine,Hum.rec.anlog 30 units SCJ HS 12/16/18 [Lantus (10mL VIAL) -] Metformin HCl [Glucophage] 500 mg PO BID 12/16/18 CXR RESULT WAS UNREMARKABLE(SEE RADIOLOGY REPORT). A COPY GIVEN TO PATIENT IN DISCHARGE PACKAGE. ALERT O X 3 CARDIAC:S1 S2; RRR; NO MM/R LUNGS:CTA, ANGIE. ABDOMEN:SOFT, +BS; NT/ND EXTREMITIES:NO E/C/C AMBULATES WITH STEADY GAIT. Assessment: 01/04/19 10:31 NAD MEDICALLY STABLE HS Inpatient Services Medical - Diagnosis (1) Hx of diabetes mellitus Current Visit: Yes Status: Chronic (2) Alcohol dependence Qualifiers: Substance use status: uncomplicated Qualified Code(s): F10.20 - Alcohol dependence, uncomplicated Current Visit: Yes Status: Chronic (3) Essential (primary) hypertension Current Visit: Yes Status: Chronic (4) Hepatitis C Qualifiers: Viral hepatitis chronicity: unspecified Current Visit: Yes Status: Chronic (5) Nicotine dependence Qualifiers: Nicotine product type: cigarettes Substance use status: uncomplicated Qualified Code(s): F17.210 - Nicotine dependence, cigarettes, uncomplicated Current Visit: Yes Status: Chronic Initialized on 01/04/19 10:25 - END OF NOTE Plan: D/C PT TODAY FOLLOW UP WITH CD AFTERCARE RECOMMENDATIONS. FOLLOW UP WITH PRIMARY CARE FOR MEDICAL AND PSYCH MANAGEMENT AT [facility] WITHIN 1 WEEK AFTER DISCHARGE.
== END 2019-01-04 10:00 | disposition home or self-care (01) | DRG 895 ==
LOC: YASAS 16:14 → Y6N 20:12 → UNDODISIN 12-19 18:10 → Y5N 12-19 18:13
PROVIDERS: ADMIT Surgery; ATTEND Surgery
PROC: HZ2ZZZZ Detoxification Services for Substance Abuse Treatment (ICD-10-PCS; principal; 2018-12-16)
PROC: HZ42ZZZ Group Counseling for Substance Abuse Treatment, Cognitive-Behavioral (ICD-10-PCS; 2018-12-19)
DX: F10.230 Alcohol dependence with withdrawal, uncomplicated (principal); F33.1 Major depressive disorder, recurrent, moderate; F10.24 Alcohol dependence with alcohol-induced mood disorder; F10.282 Alcohol dependence with alcohol-induced sleep disorder; F17.210 Nicotine dependence, cigarettes, uncomplicated; I10 Essential (primary) hypertension; E11.65 Type 2 diabetes mellitus with hyperglycemia; B18.2 Chronic viral hepatitis C; R94.5 Abnormal results of liver function studies; G47.00 Insomnia, unspecified; Z79.4 Long term (current) use of insulin; Z59.0 Homelessness
CPT/HCPCS: 36415; 71046-TC-FY; 80053; 82962; 85027; 86480; 86593